=== PATIENT | male | born 1965 | race Caucasian/White ===

== ENCOUNTER → 2018-09-07 13:54 | Outpatient (CLI) | payer BC, SELFPAY ==
--- NOTE | 2018-09-07 | DI.CT.S_ITS ---
PROCEDURE: CT ANGIO CHEST INDICATIONS: BICUSPID AORTIC VALVE TECHNIQUE: After the administration of intravenous contrast, 2.5 mm thick sections acquired from the lung apices to the posterior lung bases. Maximum intensity projection (MIP) oblique sagittal reformats were then acquired parallel to the aortic arch. For radiation dose reduction, the following was used: automated exposure control. COMPARISON: None. FINDINGS: Image quality: Excellent. Aorta:The sinuses of Valsalva measure 47 mm short axis. The sinotubular junction measures 39 mm short axis. The mid ascending thoracic aorta measures 46 mm short axis. The proximal thoracic aortic arch measures 35 mm short axis. The distal aortic arch measures 24 mm short axis. The proximal descending thoracic aorta measures 26 mm short axis. The distal descending thoracic aorta measures 22 mm short axis. There is no evidence of dissection, nor significant stenosis. Mediastinum: Heart size is normal. No pericardial effusion. No mediastinal or hilar adenopathy by size criteria. Calcified right paratracheal lymph node. Central pulmonary arteries are normal in size. Esophagus is normal in caliber. No hiatal hernia. Lungs and pleura: No acute airspace opacities. Calcified granuloma at the right lateral lung base. No pleural effusions or pneumothorax. Central and peripheral airways are patent and normal in caliber. Bones and chest wall: No axillary adenopathy by size criteria. Thyroid gland is within normal limits. No suspicious bony lesions. No vertebral body compression fractures. Abdomen: Visualized upper abdominal solid organs and bowel loops appear normal. IMPRESSION: 1. Mild aneurysmal dilatation of the aortic root and ascending thoracic aorta. 2. Remote trauma most disease. Dictated by: Marvin Loera M.D. on 09/07/2018 at 16:10 Approved by: Marvin Loera M.D. on 09/07/2018 at 16:18
== END ==
PROVIDERS: Visit Provider Internal Medicine Cardiovascular Disease
DX: Q23.1 Congenital insufficiency of aortic valve (principal); I71.2 Thoracic aortic aneurysm, without rupture
CPT/HCPCS: 71275; Q9967

== ENCOUNTER → 2018-11-25 15:40 | Outpatient (CLI) | payer BC, SELFPAY ==
--- NOTE | 2018-11-25 | DI.MRI.S_ITS ---
PROCEDURE: MR LUMBAR SPINE WO CON INDICATIONS: Left leg pain TECHNIQUE: Noncontrast sagittal T1 spin echo and T2 fast echo, sagittal STIR, axial T1 and T2 fast spin echo through the lumbar spine. In cases with scoliosis, additional coronal T2 fast spin echo may be performed. COMPARISON: None. FINDINGS: Image quality: Excellent. Alignment and Curvature: There is normal bony alignment. Bone Marrow: Marrow is of normal overall signal. No acute vertebral body compression fractures. Spinal Cord: Conus medullaris terminates at the L1 level. Visualized cord demonstrates normal signal and size. Paraspinous Soft Tissues: No paravertebral masses. L1-L2: Normal appearance. L2-L3: Right lateral disc herniation/extrusion is seen extending to right neural recess causing moderate to severe right-sided neuroforaminal narrowing contacting right L2 and L3 nerve roots at this level. Mild right sided central canal stenosis is also seen. L3-L4: There is broad-based disc bulge and superimposed left lateral disc herniation and extrusion extending to cause severe left-sided neuroforaminal narrowing contacting exiting left L4 nerve root. Bilateral facet arthrosis and hypertrophy of ligamentum flavum is seen with mild central canal stenosis. Mild right-sided neuroforaminal narrowing is also noted. L4-L5: Broad-based disc bulge and bilateral facet arthrosis is seen with moderate central canal stenosis and moderate to severe bilateral neuroforaminal narrowing more prominent on the right side. Bulging disc is seen contacting bilateral exiting L5 nerve roots. L5-S1: Mild diffuse disc bulge and bilateral facet arthrosis is seen with no significant central canal stenosis or neuroforaminal narrowing. IMPRESSION: #1. Right lateral disc herniation and bilateral facet arthrosis at L2-3 level causing moderate to severe right-sided neural foraminal narrowing and mild right central canal stenosis. #2. Broad-based disc bulge with bilateral facet arthrosis and superimposed left lateral disc herniation and extrusion at L3-4 level causing severe left-sided neuroforaminal narrowing, mild central canal stenosis and mild right-sided neuroforaminal narrowing at this level. #3. Broad-based disc bulge and bilateral facet arthrosis at L4-5 level with moderate central canal stenosis and bilateral neuroforaminal narrowing. #4. No compression fracture or spondylolisthesis. No marrow edema. Dictated by: Kevin Mane M.D. on 12/09/2018 at 9:34 Approved by: Kevin Mane M.D. on 12/09/2018 at 9:42
--- NOTE | 2018-11-25 | DI.RAD.S_ITS ---
PROCEDURE: XR LUMBAR SPINE MIN 4V INDICATIONS: LOW BACK PAIN TECHNIQUE: 5 views of the lumbar spine acquired. COMPARISON: None. FINDINGS: Bones: 5 [id number] vertebrae are present. There is minimal retrolisthesis of L3 on L4 and L5-L5. No vertebral body compression fractures. No suspicious bony lesions. There is mild degenerative disc disease at T11-T12, T12-L1, L3-L4 and L4-L5. Soft tissues: Overlying bowel gas pattern is normal. No suspicious soft tissue calcifications. Flexion/extension: There is decreased range of motion, with preserved normal alignment. IMPRESSION: 1. Mild degenerative disc disease. 2. Decreased range of motion. Dictated by: Jacinto Tolliver M.D. on 11/25/2018 at 17:03 Approved by: Jacinto Tolliver M.D. on 11/25/2018 at 17:06
== END ==
DX: M54.5 Low back pain (principal); M51.34 Other intervertebral disc degeneration, thoracic region; M51.35 Other intervertebral disc degeneration, thoracolumbar region; M51.36 Other intervertebral disc degeneration, lumbar region
CPT/HCPCS: 72110; 72148

== ENCOUNTER → 2021-11-21 16:05 | Outpatient (CLI) | payer OTHER, SELFPAY ==
[2021-11-21 17:05] LABS: COVID19 -Nasal RAPID Negative (Negative)
== END ==
PROVIDERS: Visit Provider Nurse Practitioner Family
DX: Z20.822 Contact with and (suspected) exposure to COVID-19 (principal)
CPT/HCPCS: 87635

== ENCOUNTER → 2022-04-08 12:26 | Outpatient (CLI) | payer OTHER, SELFPAY ==
[2022-04-08 12:53] LABS: COVID19 -Nasal RAPID Negative (Negative)
== END ==
PROVIDERS: Visit Provider Registered Nurse Diabetes Educator
DX: Z20.822 Contact with and (suspected) exposure to COVID-19 (principal)
CPT/HCPCS: 87635

== ENCOUNTER → 2022-04-25 09:14 | Outpatient (CLI) | payer OTHER, SELFPAY ==
[2022-04-25 10:01] LABS: COVID19 -Nasal RAPID Negative (Negative)
== END ==
PROVIDERS: Visit Provider Registered Nurse Diabetes Educator
DX: Z20.822 Contact with and (suspected) exposure to COVID-19 (principal)
CPT/HCPCS: 87635

== ENCOUNTER → 2022-05-12 10:09 | Outpatient (CLI) | payer OTHER, SELFPAY ==
[2022-05-12 11:16] LABS: COVID19 -Nasal RAPID Negative (Negative)
== END ==
PROVIDERS: Visit Provider Family Medicine
DX: R09.81 Nasal congestion (principal); R41.89 Other symptoms and signs involving cognitive functions and awareness; R09.89 Other specified symptoms and signs involving the circulatory and respiratory systems; R53.81 Other malaise
CPT/HCPCS: 87635

== ENCOUNTER → 2022-06-25 16:50 | Outpatient (CLI) | payer OTHER, SELFPAY ==
--- NOTE | 2022-06-25 16:52 | DI.MRI.S_ITS ---
PROCEDURE: MR LUMBAR SPINE WO CON INDICATIONS: Radiculopathy, lumbar region TECHNIQUE: Noncontrast sagittal T1 spin echo and T2 fast echo, sagittal STIR, and T2 fast spin echo through the lumbar spine. In cases with scoliosis, additional coronal T2 fast spin echo may be performed. COMPARISON: [facility], CR, XR LUMBAR SPINE MIN 4V, 11/25/2018, 16:14. [facility], MR, MR LUMBAR SPINE WO CON, 11/25/2018, 15:57. FINDINGS: Image quality: Excellent. Alignment and Curvature: 5 lumbar type vertebral bodies are present by plain film. There is loss of normal lumbar lordosis. 2 mm retrolisthesis of L1 on L2. 2 mm retrolisthesis of L2 on L3. 5 mm of retrolisthesis of L3 on L4. 4 mm of retrolisthesis of L4 on L5. Bone Marrow: Marrow is of normal overall signal. No acute vertebral body compression fractures. Moderate reactive signal within the endplates adjacent to the L3-L4 and L4-L5 intervertebral discs. Mild reactive signal adjacent to the remaining thoracolumbar intervertebral discs. Spinal Cord: Conus medullaris terminates at the mid L1 level. Visualized cord demonstrates normal signal and size. Paraspinous Soft Tissues: No paravertebral masses. T12-L1: Moderate disc height loss and desiccation. Mild diffuse disc bulge. Mild facet and ligamentum flavum hypertrophy. Mild epidural lipomatosis. Mild canal stenosis. Mild right greater than left foraminal stenosis. No significant change. L1-L2: Moderate disc height loss and desiccation. Mild diffuse disc bulge with superimposed right posterolateral disc extrusion, new since the prior examination. Mild facet and ligamentum flavum hypertrophy. Mild epidural lipomatosis. Mild canal stenosis. Increased, mild right foraminal stenosis. No change in mild left foraminal stenosis. L2-L3: Moderate disc desiccation. Mild disc height loss and diffuse disc bulge with superimposed right paracentral disc extrusion which extends superiorly within the right lateral recess, and causes compression and posterior deviation of the right L2 nerve root, new since the prior examination. Mild facet and ligamentum flavum hypertrophy. Mild canal stenosis. Increased, moderate right foraminal stenosis. No change in mild left foraminal stenosis. L3-L4: Moderate disc height loss and desiccation. Moderate diffuse disc bulge/osteophyte. Mild facet and ligamentum flavum hypertrophy. Mild epidural lipomatosis. Increased, moderate canal stenosis. No change in severe left and moderate right foraminal stenosis. Left L3 nerve root compression. L4-L5: Moderate disc height loss and desiccation. Mild diffuse disc bulge/osteophyte with superimposed right posterolateral protrusion. Mild facet and ligamentum flavum hypertrophy. Mild epidural lipomatosis. Mild canal stenosis is unchanged. No change in severe right and moderate left foraminal stenosis. Right L4 nerve root compression. L5-S1: Moderate disc height loss and desiccation. Mild diffuse disc bulge. Mild bilateral facet hypertrophy. Mild canal stenosis. No foraminal stenosis. IMPRESSION: 1. Multilevel degenerative disc and facet disease, as well as ligamentum flavum hypertrophy and epidural lipomatosis. 2. Multilevel canal stenoses, worst at L3-L4 where there is moderate canal stenosis. 3. Multilevel foraminal stenoses, worst at L3-L4 and L4-L5 where there is associated intraforaminal nerve root compression. 4. New L2-L3 disc extrusion, causing right L2 nerve root compression and deviation as described above. 5. Recommend correlation with clinical symptoms to ascertain relevance of these findings. Dictated by: Marvin Loera M.D. on 06/26/2022 at 10:21 Transcribed by: [email or web address] on 06/26/2022 at 10:54 Approved by: Marvin Loera M.D. on 06/26/2022 at 11:21
== END ==
PROVIDERS: Referring Provider Physician Assistant; Visit Provider Physician Assistant
DX: M51.16 Intervertebral disc disorders with radiculopathy, lumbar region (principal); M51.17 Intervertebral disc disorders with radiculopathy, lumbosacral region; M43.16 Spondylolisthesis, lumbar region; M48.061 Spinal stenosis, lumbar region without neurogenic claudication; M48.07 Spinal stenosis, lumbosacral region
CPT/HCPCS: 72148